=== PATIENT | male | born 1950 | race Caucasian/White ===

== ENCOUNTER 2020-08-05 13:32 | Emergency (ER) | payer MEDICARE ==
[2020-08-05] MEDS ORDERED: Aspirin 325 MG TAB ONE (14:17)
[2020-08-05] MEDS ORDERED: Lidocaine Viscous Sol 2% 15 ml UD Cup ONE (14:17)
[2020-08-05] MEDS ORDERED: Mag-Al Plus 1200 MG/1200 MG/120 MG/30 ML UDCUP ONE (14:17)
[2020-08-05] MEDS ORDERED: Famotidine/PF 20 mg/2ml Vial ONE (14:17)
[2020-08-05 14:24] LABS: #Eosinphils 0.1 10x3/uL (0.0-0.5); #Monocytes 0.5 10x3/uL (0.0-1.1); #Neutrophils 8.8 10x3/uL (1.5-8.4); %Basophils 0.3 % (0.0-2.0); %Eosinophils 0.9 % (0.0-6.0); %Lymphocytes 10.2 % (18.0-47.0); %Monocytes 4.9 % (0.0-10.0); %Neutrophils 83.4 % (40.0-75.0); Hemoglobin 17.4 g/dL (13.5-17.5); Mean Corpuscular HGB CONC 33.4 g/dL (32.0-36.0); Mean Corpuscular Hemoglobin 32.9 pg (27.0-33.0); Mean Corpuscular Volume 98.5 fl (81.2-95.1); Mean Platelet Volume 10.8 fl (7.4-10.4); Platelet Count 98 10x3/uL (150-450); RBC Distribution Width 12.9 % (11.5-14.5); Red Blood Cell (RBC) Count 5.29 10x6/uL (4.32-5.72); White Blood Cell (WBC) Count 10.6 10x3/uL (3.5-10.5)
[2020-08-05 14:31] LABS: Bilirubin Neg (Negative); Blood, Urine 50 (Negative); Clarity Clear (Clear); Glucose, Urine (Dipstick) Normal (Negative); Ketone, Urine 15 mg/dL (Negative); Leukocyte 25 (Negative); Nitrite Negative (Negative); Protein, Urine (Dipstick) 30 mg/dl (Neg-Trace); Specific Gravity, Urine 1.015 (1.002-1.036); pH, Urine 6.5 (5.0-9.0)
[2020-08-05] MEDS ORDERED: Ondansetron PF 4 MG/2 ML Vial ONE (14:32)
[2020-08-05 14:39] LABS: ALT (SGPT) 15 U/L (8-55); AST (SGOT) 23 U/L (5-34); Alkaline Phosphatase 84 U/L (40-110); Anion Gap 15 mmol/L (10-20); BUN (Urea Nitrogen) 23 mg/dL (8.4-25.7); Bilirubin, Total 1.9 mg/dL (0.2-1.2); Calc. Creatinine Clearance 0 mL/min (70-130); Calcium 9.3 mg/dL (7.8-10.44); Carbon Dioxide 26 mmol/L (23-31); Chloride 102 mmol/L (98-107); Glucose 92 mg/dL (83-110); Lipase 15 U/L (8-78); Potassium 4.6 mmol/L (3.5-5.1); Sodium 138 mmol/L (136-145)
[2020-08-05 14:51] LABS: Platelet Morphology Comment Appears Decreased; RBC Morphology Normal
[2020-08-05 15:01] LABS: Bacteria/HPF None Seen HPF (None Seen); RBC/HPF 0-3 HPF (0-3); Squamous Epithelial 0-3 HPF (0-3); WBC/HPF 0-3 HPF (0-3)
== END 2020-08-05 16:20 | disposition home or self-care (01) ==
LOC: CSHERS 13:32
DX: K21.9 Gastro-esophageal reflux disease without esophagitis (principal); J44.9 Chronic obstructive pulmonary disease, unspecified; I25.10 Atherosclerotic heart disease of native coronary artery without angina pectoris
CPT/HCPCS: 36415; 71045; 74177; 80053; 81003; 81015; 83690; 83735; 84484; 85025; 93005; 96374; 96375; J2405; S0028

== ENCOUNTER 2024-01-02 18:29 | Observation (INO) | payer MEDICARE ==
[2024-01-02] MEDS ORDERED: Acetaminophen 325 MG TAB PO PRN (19:29)
[2024-01-02] MEDS ORDERED: Ondansetron PF 4 MG/2 ML Vial IVP PRN (19:29)
[2024-01-02] MEDS ORDERED: Guaifenesin DM 100-10/5 ML UDCUP PO PRN (19:29)
[2024-01-02] MEDS ORDERED: Calcium Carbonate 500 MG ChewTAB PO PRN (19:29)
[2024-01-02] MEDS ORDERED: Senokot S 8.6-50 MG TAB PO PRN (19:29)
[2024-01-02] MEDS ORDERED: Albuterol 2.5 MG (3 mL) NEB NEB PRN (19:51)
[2024-01-02 20:02] VITALS: BMI 21.4
[2024-01-02] MEDS: Midodrine HCl 5 MG TAB PO SCH (20:04)
[2024-01-02] MEDS: Potassium Chloride 20 MEQ TAB PO SCH (20:04)
[2024-01-02] MEDS: predniSONE 20 MG TAB PO SCH (20:04)
[2024-01-02] MEDS: Sodium Chloride 0.9% 500 ML IV SCH (20:04)
[2024-01-02 21:13] LABS: Bilirubin Neg (Negative); Blood, Urine Negative (Negative); Clarity Clear (Clear); Glucose, Urine (Dipstick) >=1000 mg/dL (Negative); Ketone, Urine Negative (Negative); Leukocyte 25 (Negative); Nitrite Negative (Negative); Protein, Urine (Dipstick) Negative (Neg-Trace); Urobilinogen Normal mg/dL (Less than 2); pH, Urine 6.5 (5.0-9.0)
[2024-01-02 21:27] LABS: Bacteria/HPF Rare-Few HPF (None Seen); RBC/HPF None Seen HPF (0-3); Squamous Epithelial 0-3 HPF (0-3); WBC/HPF 0-3 HPF (0-3)
[2024-01-02] MEDS: Atorvastatin Calcium 40 MG TAB PO SCH (21:39)
[2024-01-02] MEDS: Doxycycline 100 MG CAP PO SCH (21:39)
[2024-01-02] MEDS: Apixaban 5 MG TAB PO SCH (21:39)
[2024-01-02] MEDS: guaiFENesin ER 600 MG TAB PO SCH (21:39)
[2024-01-02] MEDS: Sotalol HCl 80 MG TAB PO SCH (21:40)
[2024-01-03] MEDS: Albuterol 2.5 MG (3 mL) NEB NEB SCH (01:00)
[2024-01-03 04:43] LABS: #Basophils 0.02 10x3/uL (0.0-0.2); #Eosinphils 0.01 10x3/uL (0.0-0.5); #Monocytes 0.24 10x3/uL (0.0-1.1); #Neutrophils 9.04 10x3/uL (1.5-8.4); %Basophils 0.2 % (0.0-2.0); %Eosinophils 0.1 % (0.0-6.0); %Lymphocytes 9.9 % (18.0-47.0); %Monocytes 2.3 % (0.0-10.0); Anion Gap 17 mmol/L (10-20); BUN (Urea Nitrogen) 59 mg/dL (8.4-25.7); Calc. Creatinine Clearance 43 mL/min (70-130); Carbon Dioxide 21 mmol/L (23-31); Chloride 104 mmol/L (98-107); Estimated GFR 53; Glucose 151 mg/dL (83-110); Hematocrit 49.7 % (38.8-50.0); Hemoglobin 17.2 g/dL (13.5-17.5); Magnesium 2.1 mg/dL (1.6-2.6); Mean Corpuscular HGB CONC 34.6 g/dL (32.0-36.0); Mean Corpuscular Hemoglobin 33.6 pg (27.0-33.0); Mean Corpuscular Volume 97.1 fL (81.2-95.1); Mean Platelet Volume 11.5 fL (7.4-10.4); Platelet Count 106 10x3/uL (150-450); RBC Distribution Width 13.5 % (11.5-14.5); Red Blood Cell (RBC) Count 5.12 10x6/uL (4.32-5.72); Sodium 138 mmol/L (136-145); Troponin I 0.014 ng/mL (< 0.028); White Blood Cell (WBC) Count 10.5 10x3/uL (3.5-10.5)
[2024-01-03] MEDS: predniSONE 10 MG TAB PO SCH (08:23)
[2024-01-03] MEDS: Aspirin 81 mg Enteric Coated Tablet PO SCH (08:23)
[2024-01-03] MEDS: Pantoprazole DR 40 MG TAB PO SCH (08:23)
[2024-01-03] MEDS: Carvedilol 3.125 MG TAB PO SCH (08:48)
[2024-01-04 05:02] LABS: Anion Gap 13 mmol/L (10-20); BUN (Urea Nitrogen) 52 mg/dL (8.4-25.7); Calc. Creatinine Clearance 55 mL/min (70-130); Calcium 9.4 mg/dL (7.8-10.44); Carbon Dioxide 22 mmol/L (23-31); Chloride 106 mmol/L (98-107); Estimated GFR 72; Glucose 128 mg/dL (83-110); Potassium 3.7 mmol/L (3.5-5.1); Sodium 137 mmol/L (136-145)
[2024-01-04] MEDS: Sacubitril 24MG/Valsartan 26 MG TAB PO SCH (11:24)
[2024-01-04 13:08] VITALS: TEMP 97.7
[2024-01-04 16:46] VITALS: BP 104/66
== END 2024-01-04 17:46 | disposition home or self-care (01) ==
LOC: CSHTELE 18:59 → INTOOBSV 18:59
PROVIDERS: ADMIT Student in an Organized Health Care Education/Training Program; ATTEND Family Medicine
DX: I95.1 Orthostatic hypotension (principal); E86.1 Hypovolemia; N17.9 Acute kidney failure, unspecified; I48.20 Chronic atrial fibrillation, unspecified; I42.0 Dilated cardiomyopathy; J44.9 Chronic obstructive pulmonary disease, unspecified; I13.0 Hypertensive heart and chronic kidney disease with heart failure and stage 1 through stage 4 chronic kidney disease, or unspecified chronic kidney disease; N18.30 Chronic kidney disease, stage 3 unspecified; I50.42 Chronic combined systolic (congestive) and diastolic (congestive) heart failure; E78.5 Hyperlipidemia, unspecified; I25.10 Atherosclerotic heart disease of native coronary artery without angina pectoris; Z95.5 Presence of coronary angioplasty implant and graft; Z79.01 Long term (current) use of anticoagulants; Z79.899 Other long term (current) drug therapy
CPT/HCPCS: 80048 ×2; 81001; 83735; 84443; 84484; 85025; 94640 ×3; G0378 ×3; J7030; 36415; J7512; J7611